=== PATIENT | female | born 1990 | race Caucasian/White ===

== ENCOUNTER 2018-04-22 05:29 | Observation (INO) | payer OTHER ==
[~2018-04-22] VITALS: Ht 177.8 cm; Wt 108.9 kg
[2018-04-22] VITALS (13 sets, daily range): BP systolic 121–138; BP diastolic 67–79
--- NOTE | ~2018-04-22 | O ---
[address] [address] OPERATIVE REPORT Name: JOSE F HIGGINBOTHAM Room #: 451-P [facility].#: [id number] Admission: 04/22/18 Attend Phys: Brandon Tapia MD Discharge: Date of : 89 Report #: [id number] THIS REPORT FOR: //name// CC: [facility] physician/PCP Brandon Tapia DATE OF SERVICE: 04/22/2018 SERVICE: Orthopedics. FACILITY: [facility]. SURGEON: Brandon Tapia MD TARP REPAIRER: Lynnette Hester NP INDICATIONS FOR TARP REPAIRER: Extremity positioning, retracting, assistance with the graft and reconstruction. PREOPERATIVE DIAGNOSES: 1. Left knee pain. 2. Left knee patellar chondromalacia. 3. Left knee patellar maltracking. POSTOPERATIVE DIAGNOSES: 1. Left knee pain. 2. Left knee patellar chondromalacia. 3. Left knee patellar maltracking. PROCEDURE: 1. Left knee open matrix based autologous chondrocyte implantation ([place]). 2. Left knee tibial tubercle transfer osteotomy. ANESTHESIA: General. COMPLICATIONS: None. DRAINS: None. SPECIMENS: None. FINDINGS: 1. Complete coverage of the 8 square cm defect of the inferior half of the patella. 2. Synthes large fragment screws x 2 for osteotomy with a distal medializing osteotomy performed. [address] [address] OPERATIVE REPORT Name: JOSE F HIGGINBOTHAM Room #: 451-P [facility]#: [id number] Admission: 04/22/18 Attend Phys: Brandon Tapia MD Discharge: Date of : 89 Report #: [id number] HISTORY AND INDICATIONS: The patient is a 27-year-old female with a history of persistent progressive left knee pain secondary to patellar chondromalacia that had failed all conservative measures including rest, extensive physical therapy, intraarticular cortisone injections, viscosupplementation, activity modifications, bracing, taping and other modalities, but she continued to have lifestyle-limiting pain and wished to have definitive treatment. MRI showed cartilage damage and so we planned for a staged approach. The risks, benefits, alternatives and indication for surgery were discussed with her in detail. Risks include but not limited to pain, bleeding, infection, injury to nerves or blood vessels, persistent pain despite surgical intervention, failure of any repairs, reconstructions, progression of any preexisting chondral injury, stiffness, need for further surgery as well as complications related to anesthesia such as stroke, heart attack, pulmonary complications, thromboembolic disease and . Despite these risks, she wished to proceed. PROCEDURE IN DETAIL: After left lower extremity was correctly identified in the preoperative holding area as the operative extremity, the patient was taken to the operating room where general anesthesia was induced without complication. She was padded appropriately. Prophylactic antibiotics were administered at appropriate time. Tourniquet was applied to the left leg. Left lower extremity prepped and draped in standard sterile fashion. Time-out procedure was performed. Esmarch was utilized. Tourniquet was inflated to 300 mmHg. A standard anterior approach was made to the knee with full thickness skin flaps developed and then a medial parapatellar arthrotomy was performed with care taken to preserve the cartilage during the exposure. Hemostasis was achieved during the exposure as well to minimize bleeding in order to preserve chondrocyte viability. The patella was everted. The knee was partially flexed and then the articular cartilage lesion was delineated clearly and then it was scored and cartilage resection was performed with the curette in a typical fashion down to the level of the subchondral bone including the calcified cartilage layer. After this was completed, the tourniquet was let down and there was one area of some bleeding that was controlled with thrombin-soaked Gelfoam and epinephrine-soaked sponges and some pressure and a clean bed was achieved. The template had been fashioned out of foil suture wrap and then the graft was placed on the table in a sterile fashion and was shaped to the template size. A thin layer of fibrin glue was placed on the recipient site and then the graft was laid into position, allowed to seal securely after it was flattened appropriately and then the perimeter was sealed with fibrin glue as well. At this point, the knee was placed into extension. The patella was gently reduced and attention was turned towards the osteotomy. During the exposure with a medial parapatellar arthrotomy, the dissection was [facility] [address] [place] [address] OPERATIVE REPORT Name: JOSE F HIGGINBOTHAM Room #: 451-P [facility]#: [id number] Admission: 04/22/18 Attend Phys: Brandon Tapia MD Discharge: Date of : 89 Report #: [id number] taken down lateral to the patellar tendon as well to allow isolation of the patellar tendon and a handheld sagittal saw was used to perform a primarily transverse osteotomy of the tibial tubercle and then approximately 2-3 mm of the osteotomy was removed distally so that it could be translated distally slightly to unload the distal pole of the patella and improve the tracking and reduce a subtle amount of patella tito that was present. After the cartilage grafting was completed, the osteotomy was placed in its new position, distalized and medialized and then pinned into position using cross-table lateral x-ray to confirm safe drilling through the far cortex. Synthes large fragment screws that were countersunk were placed x 2 in a divergent fashion providing good compression across the osteotomy. Prior to finally seating the screws, bone graft was packed along the osteotomy site and final x-rays were then taken. The wound was copiously irrigated. The arthrotomy was closed with 0 Vicryl suture in [id number] fashion. The skin was then closed with 2-0 Vicryl followed by running subcuticular 3-0 Monocryl. Dermabond, and a sterile Aquacel dressing was applied followed by compression stocking. Polar Care and then knee brace locks in extension were applied as well. The patient was awakened from anesthesia and taken to recovery room in stable condition. There were no complications. All counts were recorded as correct. <ELECTRONICALLY SIGNED> By: Brandon Tapia MD 04/23/18 [id number] Brandon Tapia MD /nt
[2018-04-23 03:26] VITALS: BP 109/61
[2018-04-23 07:49] VITALS: BP 112/57
[2018-04-23 10:07] VITALS: BP 112/57
== END 2018-04-23 14:50 | disposition home or self-care (01) ==
LOC: OR 05:29 → TBA 05:30 → OR 10:07 → 4W 13:02 → OR 13:52 → 4W 04-23 06:57 → ENTRNSPT 04-23 14:25 → EDTRNSPTSTS 04-23 14:27 → 4W 04-23 14:50
DX: M22.42 Chondromalacia patellae, left knee (principal); M22.2X2 Patellofemoral disorders, left knee; Z96.652 Presence of left artificial knee joint
CPT/HCPCS: 10047; 50010; 50101; 50386; 50951; 50954; 51320; 51436; 52001; 52282; 53337; 54118; 56527; 56528; 56667; 57091; 62110; 62900; 64043; 65060; 70005